=== PATIENT | female | born 1990 | race Caucasian/White ===

== ENCOUNTER 2016-06-18 10:40 | Emergency (ER) | payer BC, OTHER ==
[~2016-06-18] VITALS: Ht 167.6 cm; Wt 85.3 kg
[2016-06-18 10:50] VITALS: TEMP 36.9; Ht 167.6 cm; Wt 85.3 kg
[2016-06-18] MEDS ORDERED: BCPILLS PO (11:05)
[2016-06-18] MEDS ORDERED: ONDANSETRON INJ 2 MG/ML 2 ML VIAL IV STA (11:12)
[2016-06-18] MEDS ORDERED: MoRPHine SULFATE 4 MG/ML 1 ML CARP\\VIAL IV STA (11:12)
[2016-06-18 11:39] LABS: BASO % 0.2 %; BASO ABS # 0.02 K/uL (0-0.2); COMPLETE YES; EOS % 0.5 %; HEMATOCRIT 40.1 % (37-47); IG% 0.2 %; LYMPH % 24.5 %; LYMPH ABS # 1.98 K/uL (1.2-3.4); MEAN CELL VOLUME 91.8 fL (80-100); MEAN CORPUSCULAR HEMOGLOBIN 30.7 pg (25-34); MEAN CORPUSCULAR HGB CONC 33.4 g/dl (32-36); MEAN PLATELET VOLUME 9.5 fL (7.4-10.4); MONO % 11.1 %; NEUT % 63.5 %; PLATELET COUNT 247 K/uL (130-400); RED BLOOD COUNT 4.37 M/uL (4.2-5.4); WHITE BLOOD COUNT 8.09 K/uL (4.8-10.8)
[2016-06-18] MEDS ORDERED: OPTIRAY 320 IV PRN (11:45)
[2016-06-18 11:58] LABS: BUN/CREATININE RATIO 8.5 (10-20); CALCIUM 8.2 mg/dl (8.5-10.1); CREATININE 1.2 mg/dl (0.60-1.20); POTASSIUM 3.2 mmol/L (3.5-5.1)
[2016-06-18 12:21] LABS: URINE APPEARANCE CLEAR (CLEAR); URINE BILIRUBIN NEG (NEG); URINE COLOR YELLOW; URINE EPITHELIAL CELL AUTO >30 /lpf (0-5); URINE NITRITE NEG (NEG); URINE SPECIFIC GRAVITY 1.008 (1.000-1.030); UROBILINOGEN NEG (NEG)
[2016-06-18 12:23] LABS: MANUAL MICROSCOPIC REQUIRED? NO; REVIEW REQ? NO
[2016-06-18] MEDS ORDERED: SODIUM CHLORIDE 0.9% 1000ML 1,000 ML IV STA (13:02)
--- NOTE | 2016-06-18 14:43 | DIAGNOSTIC IMAGING REPORT ---
CT ABD/PELVIS IV AND ORAL CONT CLINICAL HISTORY: Abdominal pain, nausea, vomiting. COMPARISON STUDY: April 2006 TECHNIQUE: Following the IV administration of 119 mL of Optiray-320, CT scan of the abdomen and pelvis was performed from the lung bases to the proximal femurs. Images are reviewed in the axial, sagittal, and coronal planes. IV contrast was administered without complication. CT DOSE: 611.87 mGy.cm FINDINGS: Lower chest: There are mild dependent atelectatic changes present. Liver: The contrast-enhanced liver is normal in size, contour, and attenuation. There is no intrahepatic biliary ductal dilatation. The hepatic veins and portal veins are patent. Gallbladder: Unremarkable. Spleen: Normal in size and attenuation. Pancreas: Unremarkable. Adrenal glands: Unremarkable. Kidneys: There is symmetric renal cortical enhancement. The kidneys are normal in size without hydronephrosis. Bowel: There are no transition zones indicate bowel obstruction. The appendix appears normal. There is no acute diverticulitis. Peritoneum: There is trace free fluid likely physiologic. No free air is visualized. There is a tiny fat-containing umbilical hernia Vasculature: The abdominal aorta is normal in course and caliber. Adenopathy: None. Pelvic viscera: The bladder, and pelvic viscera are unremarkable. Skeletal structures: No destructive osseous lesions are seen. IMPRESSION: 1. No acute intra-abdominal or pelvic findings 2. No evidence of bowel obstruction. No evidence of free air 3. Normal appendix 4. No evidence of acute diverticulitis Electronically signed by: Matthew Simeon M.D. 06/18/2016 2:41 PM Dictated Date/Time: 06/18/2016 2:37 PM
[2016-06-18] MEDS ORDERED: KETOROLAC TROMETHAMINE 30 MG/ML VIAL IV STA (15:09)
[2016-06-18] MEDS ORDERED: OXYC1TAB3 PO (15:46)
[2016-06-18 16:14] VITALS: BP 135/82; PULSE 85; O2SAT 100
--- NOTE | 2016-06-18 16:15 | EMERGENCY ROOM VISIT NOTE ---
History Report prepared by Danieliblinh: Kingston Barger Under the Supervision of: Dr. Krystian Ballesteros M.D. First contact with patient: 11:06 Chief Complaint: FLANK PAIN Stated Complaint: FLANK PAIN, NAUSEA, VOMITING History of Present Illness The patient is a 26 year old female who presents to the Emergency Room with complaints of waxing and waning bilateral flank pain beginning yesterday. She has no history of kidney stones. She states that her pain is worse on the right , and wraps around to her sides bilaterally. The patient's pain is improved with standing. She describes the pain as "sharp". She also complains of vomiting and chills. The patient denies any urinary symptoms, numbness, weakness , or vaginal symptoms. She denies any chance of . 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 Her pain does not radiate into her legs. Source of History: patient Onset: Yesterday Position: other (bilateral flanks) Quality: sharp Timing: waxes/wanes Modifying Factors (Relieving): other (standing) Associated Symptoms: + chills, + vomiting, No numbness, No urinary symptoms , No weakness Note: The patient denies any vaginal symptoms. Review of Systems See HPI for pertinent positives & negatives. A total of 10 systems reviewed and were otherwise negative. Past Medical & Surgical Medical Problems: (1) Chest pain (2) No Known Active Medical Problems Surgical Problems: (1) H/O wisdom tooth extraction Family History Cancer Diabetes mellitus Gallbladder disease Heart disease Hypertension Lung disease Social History Smoking Status: Current Every Day Smoker Alcohol Use: occasionally Drug Use: none Marital Status: single Housing Status: lives with family Occupation Status: employed Current/Historical Medications Scheduled Control Pills ( Control Pills), 1 TAB PO DAILY Scheduled PRN Oxycodone Ir (Roxicodone Ir), 5 MG PO Q4H PRN for Pain Allergies Coded Allergies: No Known Allergies (Unverified , 06/18/16) Physical Exam Vital Signs Date Time Temp Pulse Resp B/P Pulse Ox O2 Delivery O2 Flow Rate FiO2 06/18/16 14:50 56 20 149/90 97 Room Air 06/18/16 12:37 71 18 147/86 95 Room Air 06/18/16 10:50 36.9 77 16 154/91 97 Room Air Physical Exam Constitutional: Vital signs reviewed. Eyes: Pupils are equal round reactive to light. Conjunctiva are noninjected. ENT: Pharynx is clear without erythema or exudate. Mucous membranes are moist. Neck supple without meningeal signs. Respiratory: Clear to auscultation bilaterally. Breath sounds are equal bilaterally. Cardiovascular: Regular rate and rhythm. No rubs or gallops. GI: Soft, and nondistended. Bowel sounds are present. Diffuse mild abdominal tenderness. No guarding. Pelvic: Currently menstruating. Blood present in the vault. No active bleeding. No cervical motion tenderness. No adnexal tenderness or fullness. No uterine tenderness. Musculoskeletal: No peripheral edema. No CVA tenderness. No midline tenderness of the thoracic or lumbosacral spine. No SI joint tenderness. Integumentary: No cyanosis. Neurological: The patient is awake and alert. No focal deficits. Motor and sensation are intact in the lower extremities. Psychiatric: Normal affect. Medical Decision & Procedures ER Provider Diagnostic Interpretation: CT results as stated below per my review and radiologist interpretation. CT ABD/PELVIS IV AND ORAL CONT FINDINGS: Lower chest: There are mild dependent atelectatic changes present. Liver: The contrast-enhanced liver is normal in size, contour, and attenuation. There is no intrahepatic biliary ductal dilatation. The hepatic veins and portal veins are patent. Gallbladder: Unremarkable. Spleen: Normal in size and attenuation. Pancreas: Unremarkable. Adrenal glands: Unremarkable. Kidneys: There is symmetric renal cortical enhancement. The kidneys are normal in size without hydronephrosis. Bowel: There are no transition zones indicate bowel obstruction. The appendix appears normal. There is no acute diverticulitis. Peritoneum: There is trace free fluid likely physiologic. No free air is visualized. There is a tiny fat-containing umbilical hernia Vasculature: The abdominal aorta is normal in course and caliber. Adenopathy: None. Pelvic viscera: The bladder, and pelvic viscera are unremarkable. Skeletal structures: No destructive osseous lesions are seen. IMPRESSION: 1. No acute intra-abdominal or pelvic findings 2. No evidence of bowel obstruction. No evidence of free air 3. Normal appendix 4. No evidence of acute diverticulitis Electronically signed by: Matthew Simeon M.D. Laboratory Results 06/18/16 11:22 Red Blood Count 4.37, Mean Corpuscular Volume 91.8, Mean Corpuscular Hemoglobin 30.7, Mean Corpuscular Hemoglobin Concent 33.4, Mean Platelet Volume 9.5, Neutrophils (%) (Auto) 63.5, Lymphocytes (%) (Auto) 24.5, Monocytes (%) (Auto) 11.1, Eosinophils (%) (Auto) 0.5, Basophils (%) (Auto) 0.2, Neutrophils # (Auto ) 5.13, Lymphocytes # (Auto) 1.98, Monocytes # (Auto) 0.90, Eosinophils # (Auto ) 0.04, Basophils # (Auto) 0.02 06/18/16 11:22 Test 06/18/16 11:22 06/18/16 11:40 06/18/16 15:37 White Blood Count 8.09 K/uL (4.8-10.8) Red Blood Count 4.37 M/uL (4.2-5.4) Hemoglobin 13.4 g/dL (12.0-16.0) Hematocrit 40.1 % (37-47) Mean Corpuscular Volume 91.8 fL (80-100) Mean Corpuscular Hemoglobin 30.7 pg (25-34) Mean Corpuscular Hemoglobin Concent 33.4 g/dl (32-36) Platelet Count 247 K/uL (130-400) Mean Platelet Volume 9.5 fL (7.4-10.4) Neutrophils (%) (Auto) 63.5 % Lymphocytes (%) (Auto) 24.5 % Monocytes (%) (Auto) 11.1 % Eosinophils (%) (Auto) 0.5 % Basophils (%) (Auto) 0.2 % Neutrophils # (Auto) 5.13 K/uL (1.4-6.5) Lymphocytes # (Auto) 1.98 K/uL (1.2-3.4) Monocytes # (Auto) 0.90 K/uL (0.11-0.59) Eosinophils # (Auto) 0.04 K/uL (0-0.5) Basophils # (Auto) 0.02 K/uL (0-0.2) RDW Standard Deviation 44.8 fL (36.4-46.3) RDW Coefficient of Variation 13.4 % (11.5-14.5) Immature Granulocyte % (Auto) 0.2 % Immature Granulocyte # (Auto) 0.02 K/uL (0.00-0.02) Anion Gap 6.0 mmol/L (3-11) Est Creatinine Clear Calc Drug Dose 76.8 ml/min Estimated GFR () 71.2 Estimated GFR (Non- 61.5 BUN/Creatinine Ratio 8.5 (10-20) Calcium Level 8.2 mg/dl (8.5-10.1) Total Bilirubin 0.6 mg/dl (0.2-1) Direct Bilirubin 0.1 mg/dl (0-0.2) Aspartate Amino Transf (AST/SGOT) 10 U/L (15-37) Alanine Aminotransferase (ALT/SGPT) 16 U/L (12-78) Alkaline Phosphatase 64 U/L (45-117) Total Protein 6.7 gm/dl (6.4-8.2) Albumin 3.5 gm/dl (3.4-5.0) Lipase 73 U/L (73-393) Urine Color YELLOW Urine Appearance CLEAR (CLEAR) Urine pH 5.0 (4.5-7.5) Urine Specific [place] 1.008 (1.000-1.030) Urine Protein 2+ (NEG) Urine Glucose (UA) NEG (NEG) Urine Ketones NEG (NEG) Urine Occult Blood 1+ (NEG) Urine Nitrite NEG (NEG) Urine Bilirubin NEG (NEG) Urine Urobilinogen NEG (NEG) Urine Leukocyte Esterase NEG (NEG) Urine WBC (Auto) 1-5 /hpf (0-5) Urine RBC (Auto) 0-4 /hpf (0-4) Urine Hyaline Casts (Auto) 1-5 /lpf (0-5) Urine Epithelial Cells (Auto) >30 /lpf (0-5) Urine Bacteria (Auto) NEG (NEG) Urine Test NEG (NEG) Laboratory results as reviewed by me. Medications Administered Medications (Trade) Dose Ordered Sig/Flavia Route Start Time Stop Time Status Last Admin Dose Admin Morphine Sulfate (MoRPHine SULFATE INJ) 4 mg ONE STAT IV 06/18/16 11:12 06/18/16 11:14 DC 06/18/16 11:25 4 MG Ondansetron HCl 4 mg 4 mg NOW STAT IV 06/18/16 11:12 06/18/16 11:14 DC 06/18/16 11:24 4 MG Sodium Chloride (Nss 1000ml) 1,000 ml @ 999 mls/hr Q1H1M STAT IV 06/18/16 13:02 06/18/16 14:02 DC 06/18/16 13:02 999 MLS/HR Ketorolac Tromethamine (Toradol Inj) 10 mg NOW STAT IV 06/18/16 15:09 06/18/16 15:11 DC 06/18/16 15:29 10 MG ED Course 1108: The patient was evaluated in room C7. A complete history and physical exam was performed. 1112: Ordered Zofran Inj 4 mg IV, Morphine Sulfate 4 mg IV. 1302: Ordered Sodium Chloride 1000 ml @ 999 mls/hr IV, Toradol Inj 10 mg IV. 1340: I discussed the patient's blood work and urine testing. She is awaiting her CT. 1507: I reassessed the patient. Her pain has begun to return. I reviewed the patient's CT results with her. 1509: Ordered Toradol Inj 10 mg IV. 1525: I conducted a pelvic exam. See the procedure note for findings. 1545: Upon reevaluation, the patient appeared to have improvement of her symptoms. I discussed stasight's findings with the patient. She verbalized agreement of the treatment plan. She was discharged home. Medical Decision This is a 26-year-old female who presents with bilateral flank pain rating into her groin.differential diagnosis includes kidney stone, ovarian cyst, ectopic , appendicitis, pancreatitis, strain, lumbar disc disease. I did perform a limited focused review of portions of the patient's old chart on the electronic medical record. The patient has had no recent pertinent visits to this hospital. I did evaluate the patient as noted above. Patient is presenting with bilateral flank pain radiating into her groin. She says it's better when she stands up. She is neurologically intact. She has diffuse abdominal tenderness on examination. She does not have any CVA tenderness or midline tenderness to the lumbar spine. IV access was established. I did treat the patient with IV morphine and Zofran. I did order and personally review the patient's urinalysis as described above. Urine is negative. I did order and review the patient's blood work as noted in the electronic medical record. Her white blood cell count is not elevated. She does have mild hypokalemia. I did order a CT of the abdomen and pelvis. I did review the images myself as well as the radiology report as described above. There is no evidence of acute process on the CAT scan. I did discuss the test results with the patient. She states that she felt better but her pain was coming back. She was given Toradol IV. I did perform a pelvic examination as discussed above. GC and general cultures were sent. At this time the cause of her symptoms is unclear. She was advised follow with her doctor tomorrow for reevaluation. She was given a short prescription for oxycodone and given precautions regarding these medications. She was given return instructions as outlined below. [place] Drug Monitoring Program Search Results: patient reviewed within database (No matching patients) Impression Primary Impression: Diffuse abdominal pain Additional Impressions: Low back pain Hypokalemia Scribe Attestation The scribe's documentation has been prepared under my direct and personally reviewed by me in its entirety. I confirm that the note above accurately reflects all work, treatment, procedures, and medical decision making performed by me. Departure Information Dispostion Home / Self-Care Prescriptions Oxycodone Ir (Roxicodone Ir) 5 Mg Tab 5 MG PO Q4H Y for Pain, #14 TAB Prov: Krystian Ballesteros M.D. 06/18/16 Referrals No Doctor, Assigned (PCP) Forms HOME CARE DOCUMENTATION FORM, IMPORTANT VISIT INFORMATION Patient Instructions ED Abd Pain Unkn Cause Fem, ED Back Pain Acute Chronic, My [facility] Additional Instructions You have been examined and treated today on an emergency basis only. This is not a substitute for, or an effort to provide, complete comprehensive medical care. It is impossible to recognize and treat all injuries or illnesses in a single emergency department visit. It is therefore important that you follow up closely with your physician. Call as soon as possible for an appointment. Return for worsening symptoms or if you develop fever, vomiting, rectal bleeding , loss of control of your bowel or bladder, numbness or weakness to your legs, numbness to your private area, difficulty urinating, or any other concerning symptoms. Problem Qualifiers Additional Impressions: Low back pain Chronicity: acute Back pain laterality: bilateral Sciatica presence: without sciatica Qualified Codes: M54.5 - Low back pain
[2016-06-21 01:36] LABS: CHLAMYDIA TRACH RNA*** NOT DETECTED (NOT DETECTED); GC (NEIS GONORRHOEAE)RNA** NOT DETECTED (NOT DETECTED)
--- NOTE | 2016-06-21 16:57 | Pharmacy Progress Note ---
ED Pharmacist Culture FollowUp Date of Service: June 21, 2016. Gardnerella isolated from genital culture. No clue cells seen. Pelvic exam performed - no discharge noted. Patient denied vaginal symptoms. Isolation not likely indicative of infection. No intervention required. Case discussed with Dr. Ballesteros.
== END 2016-06-18 16:15 | disposition home or self-care (01) ==
LOC: C.EDB 10:40 → C.EDC 16:15
DX: R10.30 Lower abdominal pain, unspecified (principal); M54.5 Low back pain; E87.6 Hypokalemia; F17.200 Nicotine dependence, unspecified, uncomplicated; Z80.9 Family history of malignant neoplasm, unspecified; Z83.3 Family history of diabetes mellitus; Z83.79 Family history of other diseases of the digestive system; Z82.49 Family history of ischemic heart disease and other diseases of the circulatory system

== ENCOUNTER 2019-04-03 23:59 | Observation (INO) ==
--- NOTE | 2019-04-04 00:37 | History & Physical Report ---
Date of Service April 04, 2019 Assessment & Plan (1) premature rupture of membranes (PPROM) delivered, current ho spitalization: amnisure positive. nitrazine pos Bedside U/S reveals pos FHR, however little to no fluid seen around fetus. Spoke with media director MFM They recommend observation for now. Antibiotics not recommended until 23 weeks. Consider outpatient apt and potential admit at 23 weeks Plan to keep admitted for at least 24 hours to determine if temp elevation, contractions or sepsis History of Present Illness Primary Care Provider: Mara Flores PA-C noted to have increased mucus discharge this evening which then progressed to watery discharge with pink tinge. No sig cramping . No other symptoms. Allergies Allergy/AdvReac Type Severity Reaction Status Date / Time No Known Allergies Allergy Mild Verified 03/20/19 15:54 Home Medications Home Medications Medication Instructions Recorded Confirmed Type prenat.vits,lulu,fyf-[id number] 1 tab PO DAILY 02/14/19 03/20/19 History calcium carbonate PO 02/20/19 03/20/19 History Patient History Medical History Endometriosis Hx of varicella [place] No acute medical problems Surgical History Filion teeth removed Family History Grandmother (Maternal) Diabetes Dyslipidemia Kidney disease Mother Twins, both stillborn Depression Sister Depression Social History marital status: marital status details: Km Osborne (34) [phone] Current Living Situation: Spouse Current Living Situation Comment: lives with spouse, 1 dog current occupational status: employed current occupation: [employer] AR[employer] Feels Safe at Home: No Smoking Status: Current every day smoker Hx Alcohol Use: No Hx Substance Use: No Physical Exam Constitutional: WD/WN, vitals as above Gastrointestinal (Abdomen): normal bowel sounds, soft, nontender, no hepatosplenomegaly Genitourinary: normal external appearance Speculum/Bimanual Exam: normal appearance of the vagina (copious fluid in vagina. nitrazine pos) and normal appearance of the cervix Results & Data Vital Signs (Past 12 Hours) Vital Signs Pulse BP 04/04/19 00:14 112 H 130/80 Coding Level of Care Code 43519 Initial Inpt Care Lvl 2 Diagnoses premature rupture of membranes (PPROM) delivered, current hospitalization O42.919
[2019-04-04 01:13] LABS: Hematocrit (blood only) 35.8 % (37-47); Hemoglobin 12.3 g/dL (12.0-16.0); Mean Corpuscular Hemoglobin 31.3 pg (25-34); Mean Corpuscular Volume 91.1 fL (80-100); Mean Platelet Volume 9.5 fL (7.4-10.4); Platelet Count 258 K/uL (130-400); RDW Coefficient of Variation 13.5 % (11.5-14.5); RDW Standard Deviation 45.2 fL (36.4-46.3); Red Blood Count 3.93 M/uL (4.2-5.4); White Blood Count 11.66 K/uL (4.8-10.8)
[2019-04-04 01:24] LABS: Mean Corpuscular Hgb Conc 34.4 g/dL (32-36)
--- NOTE | 2019-04-04 07:05 | Ultrasound Report ---
US OB >= 14 weeks fetus CLINICAL HISTORY: 28 years-old Female presenting with PROM AT 18.6 WEEKS. TECHNIQUE: Real-time grayscale and M-mode ultrasound imaging of the pelvis was performed using a terrell sabdominal probe for a second trimester evaluation. COMPARISON: None. FINDINGS: Bladder: Normal. Uterus: Single live intrauterine . size metrics: 1. Biparietal diameter 4.0 cm corresponding to an estimated gestational age 18 weeks 1 day. 2. Head circumference 14.8 cm corresponding to an estimated gestational age 17 weeks 6 days. 3. Abdominal circumference 12.5 cm corresponding to an estimated gestational age 18 weeks 1 day. 4. Femur length 2.9 cm corresponding to an estimated gestational age 18 weeks 6 days. 5. Composite gestational age 18 weeks 1 day. heart rate: 183 beats per minute. Orientation: Cephalic presentation. Gestational sac shape: Th e low amniotic fluid limits assessment of the gestational sac. Amniotic fluid volume: Severely low am niotic fluid volume. LETICIA: Less than 1 cm. Placenta: Posterior placental implantation. Heterogeneously hypoechoic region in the placenta is avascular on color Doppler, likely placental garcia. No perigesta tional fluid to suggest hemorrhage. Cervix: Not well visualized. Cervical length: Not measured. Right adnexa: Right ovary: Not visualized. Left adnexa: Left ovary: Not visualized. Other: No large volume free fluid. IMPRESSION: 1. Severely low amniotic fluid volume with an LETICIA of less than 1 cm. This corresponds with the known premature rupture of membranes. 2. Composite gestational age 18 weeks 1 day. 3. This examination does not replace a dedicated anatomic screening between 18-20 weeks. ACT 112: Negative or not required by law. Electronically signed by: Rafael Velazquez M.D. 04/04/2019 7:04 AM
--- NOTE | 2019-04-04 07:12 | Obstetrical Progress Note ---
Date of Service April 04, 2019 Subjective patient has not experienced any increase in contractions no fevers or chills discussed at length the situation and plan. will do periodic FHR checks. temp q4h. will discuss with oncoming physician layer this am for plan of continuity, snf plan Results & Data Vital Signs (Past 12 Hours) Vital Signs Temp Pulse Resp BP 04/04/19 06:17 97.5 F L 04/04/19 04:58 97.9 F 77 18 130/70 04/04/19 02:40 97.5 F L 04/04/19 00:47 98.2 F 22 04/04/19 00:14 98.2 F 112 H 130/80 PG Care Time/CCT Total # of Minutes Spent Total Time Spent with Patient: Total time spent is greater than 50% in coordination of care (as documented) at patient's floor/unit and/or counseling patient: Coding Level of Care Code None
--- NOTE | 2019-04-04 09:08 | Labor Progress Brief Note ---
Date of Service April 04, 2019 Subjective 28yo at 18+wks ega with PPROM. Aware I am assuming care. She notes that on and off when she gets up she notes leaking but not every time. Occas blood. Cheeks are red but she says that's because she has been crying. She denies pain. No cramps. No fever/chills. She is aware that I did get signout from Dr. Amado and did hear about his discussion with overnight mfm line construction superintendent. Assessment & Plan (1) premature rupture of membranes: (2) 18 weeks gestation of : pt aware I am assuming care. i plan to call mfm to reconfirm plan as i think if she remains without obvious infection i will send her home later today. i will discuss this with mfm as well as ask for apt for consult timing. pt and partner ask about pt activity level if sent home and ask about any statistical likelihood of reaching 23wks. I will attempt to ask mfm these questions on her behalf when i speak to them on the phone. After that conversation I will update patient. She can request FHTs whenever she likes. Physical Exam Constitutional: WD/WN, vitals as above Results & Data Vital Signs (Past 12 Hours) Vital Signs Temp Pulse Resp BP 04/04/19 07:13 97.7 F 81 20 139/67 04/04/19 06:17 97.5 F L 04/04/19 04:58 97.9 F 77 18 130/70 04/04/19 02:40 97.5 F L 04/04/19 00:47 98.2 F 22 04/04/19 00:14 98.2 F 112 H 130/80 Coding Level of Care Code None Diagnoses premature rupture of membranes O42.919 18 weeks gestation of Z3A.18
--- NOTE | 2019-04-04 15:02 | Obstetrical Progress Note ---
Date of Service April 04, 2019 Assessment & Plan (1) 18 weeks gestation of : (2) premature rupture of membranes: with the increased bleeding offered patient repeat speculum exam to see if cervix was dilated. although i do not see obvious dilation, i am concerned that i see ? tissue at os and blood in vault (ie, not just spotting), no s/sx of overt infection and fetus viable. still discussed with patient options at this point or anytime given circumstances, like watchful waiting, induction for delivery. issue of +fhts discussed and given with bleeding i am concerned now this will not continue to any viability. Still, i have no crystal ball at all or can predict what will happen and there certainly is no right answer or wrong question. Explained some couples know how they want to proceed and others need more time or only can proceed with iufd or concern for maternal complications. Right now, rec she take time to think about it and agrees to stay longer here to be observed. She really did not have any questions. Her partner asked when she would be examined again and I explained would depend on symptoms as well as if there is a chance or request by her to leave the unit. They verbalized understanding. Support given. Subjective patient did get call from [facility] about apt on 04/15. i was notified by nursing that she reported golf ball sized blood clot that went into toilet last time she was up to void. this is more bleeding than in the past. pt denies significant leaking. recent fhts 160s. no pain. no cramps. Physical Exam Constitutional: WD/WN, vitals as above Neurologic: grossly normal Psychiatric: A+Ox3, euthymic affect Genitourinary: normal external appearance Speculum/Bimanual Exam: normal appearance of the vagina (blood in vault about quarter size maroon clot); + abnormal appearance of the cervix (? tissue extruding at os, os visibly <1cm. ) OB Exam Abdomen: + heart tones (present) Manual OB Exam: + cervical dilation (suspect cx ft or closed, not digitally examined) Results & Data Vital Signs (Past 12 Hours) Vital Signs Temp Pulse Resp BP 04/04/19 14:55 71 139/64 04/04/19 10:55 98.2 F 20 04/04/19 10:52 97 H 137/72 04/04/19 07:13 97.7 F 81 20 139/67 04/04/19 06:17 97.5 F L 04/04/19 04:58 97.9 F 77 18 130/70 PG Care Time/CCT Total # of Minutes Spent Total Time Spent with Patient: Total time spent is greater than 50% in coordination of care (as documented) at patient's floor/unit and/or counseling patient: Coding Level of Care Code None Diagnoses 18 weeks gestation of Z3A.18 premature rupture of membranes O42.919
[2019-04-04] MEDS ORDERED: miSOPROStoL 200 MCG TAB PR STA ×2 (17:01→23:14)
--- NOTE | 2019-04-04 17:05 | Obstetrical Progress Note ---
Date of Service April 04, 2019 Assessment & Plan (1) 18 weeks gestation of : (2) premature rupture of membranes: (3) Vaginal bleeding before 22 weeks gestation: Discussion held previously with patient, partner and family about her/their options. Given onset of bleeding and findings on last exam she is aware that outcome although not certain is grave. She does not want to continue the at this time and desires induction. Discussed methods to induce and availability of pain management and grief and mourning support. She and partner ask appropriate questions and do not feel they want to continue to wait and prefer to initiate induction now. She had eaten earlier and not hungry now. Will plan pr cytotec and dose every 3-4hr. She is getting iv site placed. Will obtain new cbc as baseline. Subjective Patient and partner asked to discuss situation. They have been considering options with ongoing bleeding and extremely early ega and desire to proceed with induction. She is sure of her decisions. Aware that fetus could be born with heartbeat but no resuscitative measures will be given, supportive measures. She did have neg cell free DNA. She denies pain or cramps. No fever or chills. She had CBC in early am, no labs since. Physical Exam Constitutional: WD/WN, vitals as above Psychiatric: Orientation: alert and oriented x 3 Eye Contact: good eye contact Affect: + tearful affect (appropriate) Results & Data Vital Signs (Past 12 Hours) Vital Signs Temp Pulse Resp BP 04/04/19 14:55 97.7 F 71 18 139/64 04/04/19 10:55 98.2 F 20 04/04/19 10:52 97 H 137/72 04/04/19 07:13 97.7 F 81 20 139/67 04/04/19 06:17 97.5 F L PG Care Time/CCT Total # of Minutes Spent Total Time Spent with Patient: Total time spent is greater than 50% in coordination of care (as documented) at patient's floor/unit and/or counseling patient: Coding Level of Care Code None Diagnoses 18 weeks gestation of Z3A.18 premature rupture of membranes O42.919 Vaginal bleeding before 22 weeks gestation O20.9
[2019-04-04 17:43] LABS: Basophils # (auto) 0.01 K/uL (0-0.2); Basophils % (auto) 0.1 %; Eosinophils # (auto) 0.15 K/uL (0-0.5); Eosinophils % (auto) 1.4 %; Hematocrit (blood only) 35.2 % (37-47); Hemoglobin 11.7 g/dL (12.0-16.0); Immature Granulocytes # (auto) 0.03 K/uL (0.00-0.02); Immature Granulocytes % (auto) 0.3 %; Lymphocytes # (auto) 2.38 K/uL (1.2-3.4); Lymphocytes % (auto) 21.9 %; Mean Corpuscular Hemoglobin 30.9 pg (25-34); Mean Corpuscular Hgb Conc 33.2 g/dL (32-36); Mean Corpuscular Volume 92.9 fL (80-100); Mean Platelet Volume 9.6 fL (7.4-10.4); Monocytes # (auto) 0.87 K/uL (0.11-0.59); Neutrophils # (auto) 7.45 K/uL (1.4-6.5); Neutrophils % (auto) 68.3 %; Platelet Count 282 K/uL (130-400); RDW Coefficient of Variation 13.8 % (11.5-14.5); RDW Standard Deviation 46.8 fL (36.4-46.3); Red Blood Count 3.79 M/uL (4.2-5.4); White Blood Count 10.89 K/uL (4.8-10.8)
[2019-04-04] MEDS ORDERED: miSOPROStoL 200 MCG TAB PO ONE (19:46)
--- NOTE | 2019-04-04 20:29 | Obstetrical Progress Note ---
Date of Service April 04, 2019 Assessment & Plan (1) 18 weeks gestation of : (2) premature rupture of membranes: (3) Vaginal bleeding before 22 weeks gestation: cytotec placed, answered ?s. denies need for pain management. Subjective pt feels some cramps no further bleeding Physical Exam Constitutional: WD/WN, vitals as above Genitourinary: Manual OB Exam: + cervical dilation 1 cm, + cervical effacement 80% and + station (GAEL feels more full) -2 OB Exam Monitor Tracing: + external uterine monitor used (no ctx) vaginal cytotec 400mcg placed. Results & Data Vital Signs (Past 12 Hours) Vital Signs Temp Pulse Resp BP 04/04/19 19:37 70 130/69 04/04/19 19:30 98.2 F 04/04/19 14:55 97.7 F 71 18 139/64 04/04/19 10:55 98.2 F 20 04/04/19 10:52 97 H 137/72 PG Care Time/CCT Total # of Minutes Spent Total Time Spent with Patient: Total time spent is greater than 50% in coordination of care (as documented) at patient's floor/unit and/or counseling patient: Coding Level of Care Code None Diagnoses 18 weeks gestation of Z3A.18 premature rupture of membranes O42.919 Vaginal bleeding before 22 weeks gestation O20.9
[2019-04-04] MEDS ORDERED: OXYCODONE/ACETAMINOPHEN 5mg/325mg TAB PO PRN (21:45)
[2019-04-04] MEDS ORDERED: LACTATED RINGER S IV PRN (21:46)
[2019-04-04] MEDS ORDERED: OXYTOCIN IV PRN (21:46)
--- NOTE | 2019-04-04 21:50 | Obstetrical Progress Note ---
Date of Service April 04, 2019 Assessment & Plan (1) 18 weeks gestation of : (2) Vaginal bleeding before 22 weeks gestation: (3) premature rupture of membranes: cont current care. consider redose of cytotec at 3hr brendan from last dose. pt declines anesth but desire percocet. will get dilute pit ready for postdelivery prn Subjective pt feels some rectal pressure Physical Exam Constitutional: WD/WN, vitals as above Genitourinary: Manual OB Exam: + cervical dilation (posterior) 1 cm GAEL full. Results & Data Vital Signs (Past 12 Hours) Vital Signs Temp Pulse Resp BP 04/04/19 19:37 70 130/69 04/04/19 19:30 98.2 F 04/04/19 14:55 97.7 F 71 18 139/64 04/04/19 10:55 98.2 F 20 04/04/19 10:52 97 H 137/72 PG Care Time/CCT Total # of Minutes Spent Total Time Spent with Patient: Total time spent is greater than 50% in coordination of care (as documented) at patient's floor/unit and/or counseling patient: Coding Level of Care Code None Diagnoses 18 weeks gestation of Z3A.18 Vaginal bleeding before 22 weeks gestation O20.9 premature rupture of membranes O42.919
[2019-04-04] MEDS ORDERED: ONDANSETRON INJ 2 MG/ML 2 ML VIAL ONE (22:07)
[2019-04-04] MEDS: OXYCODONE/ACETAMINOPHEN 5mg/325mg TAB PO PRN ×2 (22:09→23:32)
[2019-04-04] MEDS ORDERED: ONDANSETRON INJ 2 MG/ML 2 ML VIAL IV PRN (22:10)
--- NOTE | 2019-04-04 23:35 | Obstetrical Progress Note ---
Date of Service April 04, 2019 Assessment & Plan (1) 18 weeks gestation of : (2) Vaginal bleeding before 22 weeks gestation: (3) premature rupture of membranes: cervical change noted, plan additional cytotec. Subjective having some cramps. percocet helped. does not want anything stronger or epidural Physical Exam Constitutional: WD/WN, vitals as above Psychiatric: Orientation: alert and oriented x 3 Genitourinary: Manual OB Exam: + cervical dilation (2-3), + cervical effacement 100% and + station 0 OB Exam Monitor Tracing: + external uterine monitor used (no traced ctx) cytotec 400mcg per vagina Results & Data Vital Signs (Past 12 Hours) Vital Signs Temp Pulse Resp BP 04/04/19 23:15 98.2 F 71 18 131/65 04/04/19 19:37 70 130/69 04/04/19 19:30 98.2 F 04/04/19 14:55 97.7 F 71 18 139/64 PG Care Time/CCT Total # of Minutes Spent Total Time Spent with Patient: Total time spent is greater than 50% in coordination of care (as documented) at patient's floor/unit and/or counseling patient: Coding Level of Care Code None Diagnoses 18 weeks gestation of Z3A.18 Vaginal bleeding before 22 weeks gestation O20.9 premature rupture of membranes O42.919
[2019-04-05] MEDS ORDERED: PROMETHAZINE HCL 25 MG in SODIUM CHLORIDE 0.9% 50 ML IV STA (00:20)
--- NOTE | 2019-04-05 00:43 | Delivery Summary ---
Vaginal Delivery Summary Date of Service April 05, 2019 Called to pt room and on my arrival patient in [place]. Sitting on toilet and fetus held by nurse, cord clamped and cut. Fetus iufd. No active bleeding. Patient moved to bed. Digital exam with tissue in vagina. No active bleeding. Will reevaluate bleeding in about 15min and may then consider pitocin. Mother holding fetus requesting family to come in. She knows to inform us of her bleeding.
[2019-04-05] MEDS ORDERED: ONDANSETRON INJ 2 MG/ML 2 ML VIAL IV STA (01:19)
[2019-04-05] MEDS ORDERED: ACETAMINOPHEN 325 MG TAB PO PRN (01:20)
[2019-04-05] MEDS ORDERED: IBUPROFEN 600 MG TAB PO PRN (01:20)
[2019-04-05] MEDS ORDERED: OXYTOCIN 30 UNITS/500 ML BAG IV PRN (01:20)
[2019-04-05] MEDS ORDERED: OXYTOCIN 30 UNITS/500ML NSS ONE (01:23)
[2019-04-05] MEDS ORDERED: OXYTOCIN 20 UNITS in LACTATED RINGER'S 1,000 ML IV SCH (02:15)
--- NOTE | 2019-04-05 07:44 | Obstetrical Progress Note ---
Date of Service April 05, 2019 Assessment & Plan (1) 18 weeks gestation of : (2) premature rupture of membranes: (3) Vaginal bleeding before 22 weeks gestation: delivered, no evidence of infection or excess bleeding. would like to go home. instructions reviewed. discussed mood, coping as best as can be expected. will plan f/u by 2wks. restrictions reviewed. rh pos. support given. Subjective Doing well, no signficant bleeding, no pain. Ready for discharge. Plans cremation at home. [place] for [place] [facility] [place]. Physical Exam Constitutional: WD/WN, vitals as above Neurologic: grossly normal Psychiatric: A+Ox3, euthymic affect Results & Data Vital Signs (Past 12 Hours) Vital Signs Temp Pulse Resp BP Pulse Ox 04/05/19 07:25 72 128/65 04/05/19 05:53 73 130/61 04/05/19 05:23 86 129/61 04/05/19 04:53 89 127/60 04/05/19 04:23 80 125/60 04/05/19 03:53 89 127/62 04/05/19 03:20 79 97 04/05/19 03:19 77 128/62 04/05/19 03:15 74 98 04/05/19 03:10 77 98 04/05/19 03:09 86 128/60 04/05/19 03:05 95 H 98 04/05/19 03:00 99 H 98 04/05/19 02:59 71 130/71 04/05/19 02:55 98 H 97 04/05/19 02:50 91 H 97 04/05/19 02:49 71 131/63 04/05/19 02:45 75 97 04/05/19 02:40 77 97 04/05/19 02:39 71 127/69 04/05/19 02:35 71 98 04/05/19 02:30 73 97 04/05/19 02:29 71 131/61 04/05/19 02:25 73 98 04/05/19 02:20 65 98 04/05/19 02:19 75 131/60 04/05/19 02:15 83 97 04/05/19 02:10 86 97 04/05/19 02:09 83 135/76 04/05/19 02:05 76 97 04/05/19 02:00 86 97 04/05/19 01:59 74 138/67 04/05/19 01:55 85 97 04/05/19 01:50 66 97 04/05/19 01:49 59 L 130/65 04/05/19 01:45 70 97 04/05/19 01:40 73 97 04/05/19 01:39 69 133/67 04/05/19 01:35 64 97 04/05/19 01:30 60 98 04/05/19 01:29 56 L 132/63 04/05/19 01:25 64 97 04/05/19 01:20 66 98 04/05/19 01:19 77 148/98 H 04/05/19 01:15 73 98 04/05/19 01:12 76 94 04/05/19 01:10 68 98 04/05/19 01:09 64 141/67 H 04/05/19 01:05 67 98 04/05/19 01:03 87 94 04/05/19 01:00 77 138/63 99 04/05/19 00:57 83 134/63 04/05/19 00:54 67 138/67 04/04/19 23:15 98.2 F 71 18 131/65 PG Care Time/CCT Total # of Minutes Spent Total Time Spent with Patient: Total time spent is greater than 50% in coordination of care (as documented) at patient's floor/unit and/or counseling patient: Coding Level of Care Code None Diagnoses 18 weeks gestation of Z3A.18 premature rupture of membranes O42.919 Vaginal bleeding before 22 weeks gestation O20.9
== END 2019-04-05 09:05 | disposition home or self-care (01) ==
LOC: 4S1 23:59 → OPB 23:59 → 4S1 04-04 00:02